=== PATIENT | male | born 1960 | race African-American/Black ===

== ENCOUNTER → 2017-03-30 | Outpatient (CLI) | payer BC ==
--- NOTE | 2017-03-31 10:31 | PCVCIMAG ---
APPROVED REPORT Study performed: 03/30/2017 08:25:02 EXAM: Comprehensive 2D, Doppler, and color-flow Echocardiogram Patient Location: Echo lab Status: routine BSA: 2.07 HR: 51 bpm Rhythm: NSR Other Information Study Quality: Good Indications Cardiomyopathy Chest Pain Hypertension/HDD 2D Dimensions LVEF(%): 47.19 (>50%) IVSd: 11.34 (7-11mm)LVOT Diam: 20.90 (18-24mm) LVDd: 49.75 mm PWd: 11.91 (7-11mm)Ascending Ao: 38.98 (22-36mm) LVDs: 37.94 (25-40mm) Left Atrium: 36.39 (27-40mm) Aortic Root: 32.16 mm LV Single Plane 4CH: 50.84 % LV Single Plane 2CH: 58.66 %Mojica's LVEF: 54.75 % Biplane EF: 54.5 % Volumes Left Atrial Volume (Systole) Single Plane 4CH: 28.13 mLSingle Plane 2CH: 67.97 mL LA ESV Index: 22.00 mL/m2 Aortic Valve AoV Peak Petey.: 1.50 m/s AO Peak Gr.: 9.18 mmHgLVOT Max P.87 mmHg LVOT Max V: 1.10 m/s MERLY Vmax: 2.52 cm2 AI Vmax: 3.66 m/s AI [place]: 1.14 m/s2 AI PHT: 929.12 ms Mitral Valve E/A Ratio: 0.8 MV Decel. Time: 168.86 ms MV E Max Petey.: 0.76 m/s MV A Petey.: 0.99 m/s TDI E/Lateral E': 8.44E/Medial E': 9.50 Medial E' Petey.: 0.08 m/s Lateral E' Petey.: 0.09 m/s Pulmonary Valve PV Peak Gr.: 2.34 mmHg Pulmonary Vein P Vein S: 0.53 m/sP Vein A: 0.35 m/s P Vein D: 0.60 m/sP Vein A Dur.: 121.1 msec P Vein S/D Ratio: 0.88 Tricuspid Valve TR Peak Petey.: 2.50 m/s TR Peak Gr.: 24.93 mmHg Left Ventricle The left ventricle is normal size. There is normal LV segmental wall motion. There is normal left ventricular wall thickness. Left ventricular systolic function is normal. The left ventricular ejection fraction is within the normal range. LVEF is 50%. The left ventricular diastolic function is normal. Right Ventricle The right ventricle is normal size. The right ventricular systolic function is normal. Atria The left atrium size is normal. The right atrium size is normal. Aortic Valve The aortic valve is normal in structure. Trace aortic regurgitation. There is no aortic valvular stenosis. Mitral Valve The mitral valve is normal in structure. Trace mitral regurgitation. No evidence of mitral valve stenosis. Tricuspid Valve The tricuspid valve is normal in structure. Trace tricuspid regurgitation. Pulmonary artery pressure is 22mmhg. Pulmonic Valve The pulmonary valve is normal in structure. Trace pulmonic regurgitation. Great Vessels The aortic root is normal in size. Ascending Aorta measures 3.9cm2. IVC is normal in size and collapses with >50% inspiration Pericardium There is no pericardial effusion. <Conclusion> The left ventricle is normal size. LVEF is 50%. The aortic valve is normal in structure. Trace aortic regurgitation. The mitral valve is normal in structure. Trace mitral regurgitation. The tricuspid valve is normal in structure. Trace tricuspid regurgitation. Pulmonary artery pressure is 22mmhg. The pulmonary valve is normal in structure. Trace pulmonic regurgitation. Ascending Aorta measures 3.9cm2. There is no pericardial effusion.
--- NOTE | 2017-03-31 11:57 | PCVCIMAG ---
APPROVED REPORT Exam: Nuclear Stress Test Indication: Cardiomyopathy, Chest Pain Patient Location: Out-Patient Stress Nurse: Mery Nuno RN [place] Tech:Jonnathan Mckinney NMTCB Ht: 5 ft 7 in Wt: 215 lbs BSA: 2.09 m2 HR: 51 bpm BP: 152/93 mmHg BMI: 33.6 Rhythm: Bradycardia, , First degree AV Block, ST and T Abnormalities Medical History Medical History: Age, Hyperlipidemia, HTN Medications: Losartan-HCT, Quinapril, Pravachol, Bystolic (held 24 hours) Allergies: NKDA Pretest Chest Pain Characteristics: No chest pain Exercise History: Physically active NM EXAM: Myocardial Perfusion REST/STRESS Imaging Protocol: Rest Tc-99m/Stress Tc-99m 1 day Resting Data Rest SPECT myocardial perfusion imaging was performed in supine position 45 minutes following the intravenous injection of 16.3 mCi of Tc-99m Sestamibi. Time of rest injection: 0850 Administration Route: IV Administration Site: Right AC Exercise Stress At peak stress, the patient was injected intravenously with 48mCi of Tc-99m Sestamibi. Time of stress injection: 1015 Date: 03/30/2017 Administration Route: IV Administration Site: Right AC Gated Stress SPECT was performed 45 minutes after stress injection. The images were gated to evaluate regional wall motion and calculate left ventricular ejection fraction. Study Data Post stress, the left ventricular ejection was 63%.. SSS: 2 SRS: 2 SDS: 1 TID = 0.80. Perfusion There is a large area of moderately reduced uptake in the entire segment of the inferior wall which is seen on the stress images as well as the resting images. This area thickens and moves normally and is most consistent with attenuation artifact. Wall Motion Normal left ventricular wall motion. Nuclear Conclusion 1. LOW RISK STUDY Interpreted by: Norma Kiran MD Electronically Approved: 03/31/2017 11:55:21 Stress Test Details Stress Test: Exercise stress testing was performed using a Carlos protocol. Pt wished to perform Carlos even though Pharm test was ordered. HR Resting HR: 51 bpmMax Heart Rate (APMHR): 161 bpm Max HR Achieved: 155 bpmTarget HR (85% APMHR): 136 bpm % of APMHR: 96 Recovery HR: 90 bpm HR response to stress: Normal HR response to stress BP Resting BP: 152/93 mmHg Max BP: 181/93 mmHg BP response to stress: Normal blood pressure response to stress. ECG Resting ECG: Sinus Rhythm, 1st degree AV block, Nonspecific ST-T abnormalities Stress ECG: Sinus Rhythm, nonspecific ST-T abnormalities ST Change: Upsloping ST depression Maximum ST Deviation: 1.0 mm Arrhythmia: VPC's Recovery ECG: Sinus Rhythm, 1st degree AV block, Nonspecific ST-T abnormalities Clinical Reason for Termination: Fatigue Stress Symptoms: None Exercise duration: 12 min 40 sec Exercise capacity: 15.9 METs Overall Exercise Capacity for Age: Good Scale: Active Angina Score: None Stress ECG Conclusion 1. SUBJECTIVELY NEGATIVE FOR ISCHEMIA 2. ELECTROCARDIOGRAPHICALLY NEGATIVE FOR ISCHEMIA 3. EXCELLENT FUNCTIONAL CAPACITY Armijo Treadmill Score is 7.0 which is Low risk. <Conclusion> 1. SUBJECTIVELY NEGATIVE FOR ISCHEMIA 2. ELECTROCARDIOGRAPHICALLY NEGATIVE FOR ISCHEMIA 3. EXCELLENT FUNCTIONAL CAPACITY
== END | disposition home or self-care (01) ==
LOC: PCVCIMAG 08:13
PROVIDERS: ATTEND Internal Medicine
DX: I11.0 Hypertensive heart disease with heart failure (principal); I50.9 Heart failure, unspecified; I42.9 Cardiomyopathy, unspecified; E78.5 Hyperlipidemia, unspecified; I44.0 Atrioventricular block, first degree; R00.1 Bradycardia, unspecified
CPT/HCPCS: 78452; 93017; 93306; A9500